=== PATIENT | female | born 1985 | race Two or more races ===

== ENCOUNTER 2022-01-29 20:48 | Emergency (ER) | payer OTHER ==
[2022-01-29 21:02] VITALS: BP 115/75; PULSE 82; RESP 18; TEMP 98.4; BMI 31.9
== END 2022-01-29 22:30 | disposition home or self-care (01) ==
LOC: JERFT 20:48
DX: Z11.52 Encounter for screening for COVID-19 (principal)
CPT/HCPCS: 0241U-QW; 99283-25